=== PATIENT | female | born 1995 | race Two or more races ===

== ENCOUNTER 2019-02-20 13:14 | Emergency (ER) | payer BC ==
[~2019-02-20] VITALS: Ht 165.1 cm; Wt 57.2 kg
--- NOTE | 2019-02-20 13:14 | NUR ---
PT BIBMOM FROM DR GRAHAM FOR +DVT TO RIGHT LOWER EXTREMITY, ALSO C/O CHEST PAIN X 1 MONTH; PT AAOX4, PT ON MONITOR, VSS, PENDING MD NICK
[2019-02-20 14:15] LABS: BASOPHILS % (AUTO) 0.6 % (0.0-2.0); EOSINOPHILS % (AUTO) 0.4 % (0.0-6.0); HEMATOCRIT 40 % (33-45); HEMOGLOBIN 13.8 g/dL (11.5-14.8); LYMPHOCYTES % (AUTO) 18.4 % (20.0-44.0); MEAN CORPUSCULAR HGB CONC 35 g/dl (31.0-36.0); MEAN CORPUSCULAR VOLUME 96 fL (82-100); MONOCYTES # (AUTO) 0.3 /CMM (0.1-1.30); MONOCYTES % (AUTO) 6.3 % (2.0-12.0); NEUTROPHILS % (AUTO) 74.3 % (43.0-81.0); PLATELET COUNT (AUTO) 163 /CMM (150-450); WHITE BLOOD COUNT (AUTO) 5.3 K/uL (4.3-11.0)
[2019-02-20 14:22] LABS: CALCIUM, SERUM 9.1 mg/dL (8.5-10.1); CARBON DIOXIDE 23 mmol/L (21-32); CHLORIDE 100 mmol/L (98-107); GLUCOSE 60 mg/dL (74-106); POTASSIUM 3.9 mmol/L (3.5-5.1); SODIUM SERUM 137 mmol/L (136-145); UREA NITROGEN, BLOOD 24 mg/dL (7-18)
[2019-02-20] MEDS ORDERED: ONDANSETRON HCL/PF 4 MG/2 ML VIAL ONE (14:22)
[2019-02-20] MEDS ORDERED: MORPHINE SULFATE INJ 4 MG/ML DISP.SYRIN ONE (14:23)
[2019-02-20 14:29] LABS: ALANINE AMINOTRANSFERASE 22 U/L (12-78); ALBUMIN 4.5 g/dL (3.4-5.0); ALKALINE PHOSPHATASE 61 U/L (46-116); ASPARTATE AMINOTRANSFERASE 28 U/L (15-37); BILIRUBIN,DIRECT 0.3 mg/dL (0.0-0.2); BILIRUBIN,TOTAL 1.4 mg/dL (0.2-1.0); TOTAL PROTEIN, SERUM 7.6 g/dL (6.4-8.2)
[2019-02-20] MEDS ORDERED: IV NS 0.9% 1,000 ML BAG IV ONE (14:30)
[2019-02-20] MEDS ORDERED: MORPHINE SULFATE INJ 2 MG/ML DISP.SYRIN IV ONE (14:30)
[2019-02-20] MEDS ORDERED: ONDANSETRON HCL/PF 4 MG/2 ML VIAL IV ONE (14:30)
[2019-02-20] MEDS ORDERED: IV NS 0.9% 250 ML IV ONE (14:49)
[2019-02-20] MEDS ORDERED: IOHEXOL-350 100 ML VIAL IV ONE (14:49)
[2019-02-20] MEDS ORDERED: CT SWABBABLE VALVE TRANS SET 1 EA INFUS.SET MC ONE (14:49)
[2019-02-20] MEDS ORDERED: diphenhydrAMINE HCL 50 MG/ML VIAL IV ONE (16:00)
[2019-02-20] MEDS ORDERED: diphenhydrAMINE HCL 50 MG/ML VIAL ONE (16:01)
--- NOTE | 2019-02-20 16:35 | NUR ---
CALLED DR ONEILL'S OFFICE AND LEFT A MESSAGE
--- NOTE | 2019-02-20 16:58 | NUR ---
Patient discharged to home in stable condition. Written and verbal after care instructions given. Patient verbalizes understanding of instruction. IV removed. Catheter intact and site benign. Pressure and 4x4 applied to site. No bleeding noted.
[2019-02-20 16:59] VITALS: BP 110/60
== END 2019-02-20 17:01 | disposition home or self-care (01) ==
LOC: ER 13:17
DX: I82.401 Acute embolism and thrombosis of unspecified deep veins of right lower extremity (principal); R07.89 Other chest pain; T50.905A Adverse effect of unspecified drugs, medicaments and biological substances, initial encounter; R79.89 Other specified abnormal findings of blood chemistry; Z85.830 Personal history of malignant neoplasm of bone; Z88.8 Allergy status to other drugs, medicaments and biological substances; Y92.89 Other specified places as the place of occurrence of the external cause
CPT/HCPCS: 36415; 71045; 71275; 80048; 80076; 84484; 85025; 85730; 96374; 93005; 96375; 99284; J1200; J2270; J2405; J7030; J7050; Q9967

== ENCOUNTER 2019-02-25 20:06 | Inpatient (IN) | payer BC ==
[~2019-02-25] VITALS: Ht 165.1 cm; Wt 56.7 kg
--- NOTE | 2019-02-25 20:26 | NUR ---
Pt JOVANNYselneal complaining of chest pressure x 2 months. Pt states her family and consumer sciences teacher left a voicemail stating she needs to go to the emergency room. Pt AXO4. Respirations even and unlabored. Pt put on the cardiac cath lab manager and pulse ox. Pending eval from ER MD.
--- NOTE | 2019-02-25 20:35 | NUR ---
LAZARA CURIEL at bedside.
--- NOTE | 2019-02-25 20:55 | NUR ---
EKG AT BEDSIDE.
[2019-02-25] MEDS ORDERED: CEFTRIAXONE 1GM BAG (ER ONLY) 50 ML IV ONE (20:59)
[2019-02-25] MEDS ORDERED: GENTAMICIN 80 MG in IV D5W 50 ML IV ONE (21:00)
[2019-02-25] MEDS ORDERED: CEFTRIAXONE 1GM BAG (ER ONLY) 1 GM/50 ML PIGGYBACK IV ONE (21:00)
[2019-02-25] MEDS ORDERED: IV NS 0.9% 1,000 ML BAG IV ONE (21:00)
[2019-02-25 21:05] LABS: BASOPHILS # (AUTO) 0.1 /CMM (0.0-0.2); BASOPHILS % (AUTO) 1.4 % (0.0-2.0); EOSINOPHILS % (AUTO) 1.1 % (0.0-6.0); HEMATOCRIT 40 % (33-45); HEMOGLOBIN 13.7 g/dL (11.5-14.8); LYMPHOCYTES # (AUTO) 1.2 /CMM (0.8-4.8); LYMPHOCYTES % (AUTO) 23.6 % (20.0-44.0); MEAN CORPUSCULAR HGB CONC 34 g/dl (31.0-36.0); MEAN CORPUSCULAR VOLUME 96 fL (82-100); MONOCYTES # (AUTO) 0.5 /CMM (0.1-1.30); MONOCYTES % (AUTO) 9.6 % (2.0-12.0); NEUTROPHILS # (AUTO) 3.2 /CMM (1.8-8.9); NEUTROPHILS % (AUTO) 64.3 % (43.0-81.0); PLATELET COUNT (AUTO) 168 /CMM (150-450)
[2019-02-25 21:14] LABS: CALCIUM, SERUM 9.5 mg/dL (8.5-10.1); CARBON DIOXIDE 28 mmol/L (21-32); CHLORIDE 104 mmol/L (98-107); CREATININE 0.9 mg/dL (0.6-1.3); GLUCOSE 100 mg/dL (74-106); POTASSIUM 3.9 mmol/L (3.5-5.1); SODIUM SERUM 143 mmol/L (136-145); UREA NITROGEN, BLOOD 16 mg/dL (7-18)
[2019-02-25 21:20] LABS: ALANINE AMINOTRANSFERASE 28 U/L (12-78); ALBUMIN 4.1 g/dL (3.4-5.0); ALKALINE PHOSPHATASE 73 U/L (46-116); ASPARTATE AMINOTRANSFERASE 24 U/L (15-37); BILIRUBIN,DIRECT 0.1 mg/dL (0.0-0.2); BILIRUBIN,TOTAL 0.3 mg/dL (0.2-1.0); TOTAL PROTEIN, SERUM 7.2 g/dL (6.4-8.2)
--- NOTE | 2019-02-25 21:24 | NUR ---
XRAY AT BEDSIDE.
--- NOTE | 2019-02-25 21:30 | NUR ---
PT AMBULATED W/ STEADY GAIT TO BATHROOM. URINE SAMPLE SENT TO LAB.
--- NOTE | 2019-02-25 21:35 | NUR ---
GENTAMICIN DOSAGE DONE BY PHARMACY. DOUBLE ORDER. 80 MG GIVEN VIA IVPB.
--- NOTE | 2019-02-25 21:57 | NUR ---
REPORT GIVEN TO JULIAN DUKES FOR ELVIN.
[2019-02-25 23:02] LABS: APPEARANCE,URINE Clear (CLEAR); BILIRUBIN,URINE Negative (NEGATIVE); BLOOD, URINE Negative Ery/uL (NEGATIVE); COLOR,URINE Yellow (YELLOW); KETONES,URINE Negative (NEGATIVE); LEUKOCYTE ESTERASE ,URINE Negative (NEGATIVE); NITRITE, URINE Negative (NEGATIVE); PROTEIN,URINE Negative (NEGATIVE); UGLUCOSE Negative (NEGATIVE); UROBILINOGEN,URINE 0.2 EU/dL (0.2)
[2019-02-25 23:15] VITALS: BP 116/95
--- NOTE | 2019-02-25 23:15 | NUR ---
PRODUCTION CONSULTANTTELEVISION NEWS PHOTOGRAPHER NOTES RECEIVED FROM ER THIS 23 Y.O. FEMALE PER IZABELLA,A/O X4,SENT TO ER BY DR ONEILL FOR ABNORMAL ECHOCARDIOGRAM,C/O GENERALIZED BURNING CHEST PAIN X 2MOS WITH SOB,BEING TREATED FOR DVT ON RIGHT LEG,ON ELIQUIS 10MG BID.DENIES CHEST PAIN UPON ARRIVAL ON THE UNIT.ABLE TO WALK WITH STEADY GAIT.SALINE LOCK LEFT AC INTACT AND PATENT.WITH HX OSTEOSARCOMA ON RIGHT LEG,WITH SURGERY WHEN SHE WAS 15 YRS OLD.INSTRUCTED NPO POST MIDNIGHT GOING FOR TRANSESOPHAGEAL ECHOCARDIOGRAM BY DR HERNÁNDEZ.CALL LIGHT IN REACH,NEEDS ANTICIPATED.
[2019-02-25] MEDS ORDERED: APIX5TAB PO (23:29)
[2019-02-25 23:30] VITALS: BP 116/95
[2019-02-26] VITALS (37 sets, daily range): BP systolic 74–116; BP diastolic 39–76
[2019-02-26] MEDS ORDERED: ONDANSETRON HCL/PF 4 MG/2 ML VIAL IVP PRN
[2019-02-26] MEDS ORDERED: HYDROCODONE/APAP 5/325MG 1 EACH TABLET PO PRN
[2019-02-26] MEDS ORDERED: ACETAMINOPHEN 325 MG TABLET PO PRN
--- NOTE | 2019-02-26 | NUR ---
HOME COMFORT ADVISOR NOTES SEEN AND EXAMINED BY DR BENDER,WITH ORDERS NOTED AND CARRIED OUT.
--- NOTE | 2019-02-26 00:30 | NUR ---
BEEF CATTLE GRAZIER NOTES REFUSED SALINE LOCK THIS TIME.REMOVED PER PATIENT REQUEST.SHE WANT NEW SALINE LOCK TO INSERTED BEFORE SHE GOES TO THE PROCEDURE,ON DIFFERENT SITE.DR BENDER,CHARGE NURSE MARCOS ALAS
--- NOTE | 2019-02-26 06:21 | NUR ---
MS RN NOTES NPO ORDERED.OFFERED TO SIGN CONSENT,SAYS SHE'LL DO IT LATER ALONG WITH THE SALINE LOCK INSERTION.FEMALE RELATIVE AT BEDSIDE. BLOOD PRESSURE CHECKED MANUALLY AND IT WAS 100/64.C/O HEADACHE,NPO STATUS,OFFERED ICE CAP BUT REFUSED.IN NO ACUTE DISTRESS.WILL ENDORSE TO DAY NURSE FOR ELVIN.
[2019-02-26 07:04] LABS: BASOPHILS % (AUTO) 0.6 % (0.0-2.0); HEMATOCRIT 38 % (33-45); HEMOGLOBIN 13.1 g/dL (11.5-14.8); LYMPHOCYTES # (AUTO) 1.5 /CMM (0.8-4.8); LYMPHOCYTES % (AUTO) 29.8 % (20.0-44.0); MEAN CORPUSCULAR HGB CONC 35 g/dl (31.0-36.0); MEAN CORPUSCULAR VOLUME 95 fL (82-100); MONOCYTES # (AUTO) 0.4 /CMM (0.1-1.30); MONOCYTES % (AUTO) 8.3 % (2.0-12.0); NEUTROPHILS % (AUTO) 60.3 % (43.0-81.0); PLATELET COUNT (AUTO) 145 /CMM (150-450); RED BLOOD CELL COUNT(AUTO) 4.01 MIL/uL (4.0-5.2); WHITE BLOOD COUNT (AUTO) 4.9 K/uL (4.3-11.0)
[2019-02-26 07:06] LABS: ALANINE AMINOTRANSFERASE 28 U/L (12-78); ALBUMIN 3.7 g/dL (3.4-5.0); ALKALINE PHOSPHATASE 55 U/L (46-116); ASPARTATE AMINOTRANSFERASE 23 U/L (15-37); BILIRUBIN,TOTAL 0.4 mg/dL (0.2-1.0); CARBON DIOXIDE 27 mmol/L (21-32); CHLORIDE 106 mmol/L (98-107); CREATININE 0.8 mg/dL (0.6-1.3); GLUCOSE 103 mg/dL (74-106); PHOSPHORUS 3.7 mg/dL (2.5-4.9); POTASSIUM 3.8 mmol/L (3.5-5.1); SODIUM SERUM 142 mmol/L (136-145); TOTAL PROTEIN, SERUM 6.6 g/dL (6.4-8.2); UREA NITROGEN, BLOOD 12 mg/dL (7-18)
[2019-02-26] MEDS: PANTOPRAZOLE 40 MG TABLET.DR PO SCH (07:30)
[2019-02-26] MEDS: ACIDOPHILUS/BULGARICUS 1 EACH TAB.CHEW PO SCH ×2 (09:00→17:13)
[2019-02-26] MEDS: APIXABAN 5 MG TABLET PO SCH ×2 (09:00→17:13)
--- NOTE | 2019-02-26 09:31 | NUR ---
TELE/RN NOTE PROTONIX, ELIQUIS AND LACTINEX NOT ADMINISTERED DUE TO DIAGNOSTIC PROCEDURE. DR HERNÁNDEZ IS MADE AWARE.
--- NOTE | 2019-02-26 12:00 | NUR ---
ICU/RN: Dr Ibarra, Dr Prasad and service desk technician at bedside for KWABENA. Timeout performed. Pt verbalized understanding of procedure.
[2019-02-26] MEDS ORDERED: PROPOFOL 10MG/ML 50ML 50 ML IV ONE (12:30)
[2019-02-26] MEDS ORDERED: PROPOFOL 100 ML IV ONE (13:00)
--- NOTE | 2019-02-26 13:15 | NUR ---
ICU/RN: S/P KWABENA; pt tolerated procedure, no distress noted. Family at bedside, supportive.
[2019-02-26] MEDS ORDERED: CT SWABBABLE VALVE TRANS SET 1 EA INFUS.SET MC ONE (13:55)
[2019-02-26] MEDS ORDERED: IOHEXOL-350 100 ML VIAL IV ONE (13:55)
[2019-02-26] MEDS ORDERED: IV NS 0.9% 250 ML IV ONE ×2 (13:55→20:30)
--- NOTE | 2019-02-26 14:15 | NUR ---
ICU/RN: Pt back from CT; tolerated procedure well. Dr Ibarra notified, results pending. Per . Keep pt in ICU.
--- NOTE | 2019-02-26 15:30 | NUR ---
ICU/RN: Results of CTA chest relayed to Dr Ibarra; MD requested radiologist contact info for MD to MD discussion. Provided. Per Dr Ibarra, get stat head CT without contrast; ok to continue Eliquis if scan negative. Discussed with pt and family, verbalized understanding. deep submergence vehicle operator updated.
[2019-02-26] MEDS: MENTHOL/CETYLPYRD (CEPACOL) 1 LOZ LOZENGE PO PRN ×4 (17:12→23:14)
--- NOTE | 2019-02-26 19:35 | NUR ---
ICU/RN: Pt s/b Dr Ibarra, lengthy dw pt regarding KWABENA findings and POC. Educated by MD on need to keep IV access while in hospital. Per MD, "she's good to go back to tele unit." Endorsed to PM RN for ELVIN.
--- NOTE | 2019-02-26 20:00 | NUR ---
Received patient A/OX4.ROGEL.Respiration even and unlabored.SPO2 99% on RA.SR.Normotensive. Denies pain or any discomfort.Seen by MD with orders.Plan of care explained to patient verbalized understanding.Call light at bedside within easy reach.
[2019-02-26] MEDS ORDERED: CEFTRIAXONE 2 G in IV D5W 100 ML IV SCH (21:00)
[2019-02-26] MEDS: LINEZOLID RTU BAG 600 MG in PREMIX 1 EA IV SCH (21:15)
--- NOTE | 2019-02-26 23:15 | NUR ---
Patient complaints of sore throat.Cepacol throat lozenges administered as prn. Verbalized relief.
[2019-02-27] VITALS (21 sets, daily range): BP systolic 71–116; BP diastolic 43–72
--- NOTE | 2019-02-27 | NUR ---
Patient ambulated to restroom.Well tolerated.VS remains stable.Denies pain or sob.Friend visiting.
--- NOTE | 2019-02-27 04:00 | NUR ---
Sleeping on rounds.SB 53 and SBP 85.Patient on side lying position.Will monitor for changes. NO signs of pain or any distress.
[2019-02-27 04:46] LABS: BASOPHILS % (AUTO) 0.7 % (0.0-2.0); EOSINOPHILS % (AUTO) 1.3 % (0.0-6.0); HEMATOCRIT 38 % (33-45); HEMOGLOBIN 13.2 g/dL (11.5-14.8); LYMPHOCYTES # (AUTO) 1.4 /CMM (0.8-4.8); LYMPHOCYTES % (AUTO) 28.4 % (20.0-44.0); MEAN CORPUSCULAR HGB CONC 35 g/dl (31.0-36.0); MEAN CORPUSCULAR VOLUME 95 fL (82-100); MONOCYTES # (AUTO) 0.4 /CMM (0.1-1.30); MONOCYTES % (AUTO) 8.8 % (2.0-12.0); NEUTROPHILS % (AUTO) 60.8 % (43.0-81.0); PLATELET COUNT (AUTO) 145 /CMM (150-450); RED BLOOD CELL COUNT(AUTO) 3.96 MIL/uL (4.0-5.2)
[2019-02-27 04:55] LABS: CALCIUM, SERUM 8.6 mg/dL (8.5-10.1); CREATININE 0.9 mg/dL (0.6-1.3)
--- NOTE | 2019-02-27 06:30 | NUR ---
Patient slept rest of the night.VS remains stable.Remains on RA SPO2 98%.-99%.Patient for transfer to Tele floor pending bed availability.Learning Support Services Director aware.Will endorse to day shift RN for continuity of care.
[2019-02-27] MEDS: PANTOPRAZOLE 40 MG TABLET.DR PO SCH (07:31)
--- NOTE | 2019-02-27 08:00 | NUR ---
ICU/RN: Pt received, no distress, A&Ox4, independent of ADLs. Educated on POC.
[2019-02-27] MEDS: APIXABAN 5 MG TABLET PO SCH ×2 (08:03→16:56)
[2019-02-27] MEDS: ACIDOPHILUS/BULGARICUS 1 EACH TAB.CHEW PO SCH ×2 (08:03→16:56)
[2019-02-27] MEDS: LINEZOLID RTU BAG 600 MG in PREMIX 1 EA IV SCH (08:04)
[2019-02-27] MEDS: MENTHOL/CETYLPYRD (CEPACOL) 1 LOZ LOZENGE PO PRN (11:54)
--- NOTE | 2019-02-27 18:00 | NUR ---
ICU/RN: Pt cleared for DC by ID; cx negative, no abx tx indicated. Educated pt on s/s infection, when to see MD. Verbalized understanding.
--- NOTE | 2019-02-27 18:30 | NUR ---
ICU/RN: Pt seen by EDUARDO Smith regarding. Per CRISIS THERAPIST, ok to dc pt home. Pt verbalized understanding of DC instructions.
--- NOTE | 2019-02-27 18:52 | NUR ---
ICU/RN: Discharge Pt discharged in stable condition, accompanied by father. IV HL d/c'd, pressure applied. Educated extensively on dc instructions, contact info for Dr Ibarra and Dr Cali for pt. Pt verbalized understanding. Copies of chart provided. All belongings accounted for. Pt ambulated with steady gait.
[2019-03-05] MEDS ORDERED: APIXABAN 5 MG TABLET PO SCH (09:00)
== END 2019-02-27 18:54 | disposition home or self-care (01) | DRG 202 ==
LOC: ER 20:08 → TELE 22:35 → ICU 02-26 14:38
PROVIDERS: ADMIT Internal Medicine; ATTEND Nurse Practitioner Acute Care
DX: J20.9 Acute bronchitis, unspecified (principal); I82.401 Acute embolism and thrombosis of unspecified deep veins of right lower extremity; Z85.830 Personal history of malignant neoplasm of bone; Z85.118 Personal history of other malignant neoplasm of bronchus and lung; Z92.21 Personal history of antineoplastic chemotherapy; Z88.1 Allergy status to other antibiotic agents; Z79.01 Long term (current) use of anticoagulants
CPT/HCPCS: 36415; 70450-TC; 71045-TC; 80048-TC; 80053-TC; 80076-TC; 81000-TC; 83605-TC; 83735-TC; 83880; 84100-TC; 84484-TC; 84702-TC; 85025-TC; 85730-TC; 87040-TC; 87081-TC; 87086-TC; 93312-TC; A4216; G0378; J0696; J1580; J2020; J2704; J3490; J7030; J7050; J7060; Q9967

== ENCOUNTER 2020-01-02 11:14 | Emergency (ER) | payer BC ==
[~2020-01-02] VITALS: Ht 170.2 cm; Wt 56.7 kg
[~2020-01-02 11:14] MED LIST: APIX5TAB PO
--- NOTE | 2020-01-02 11:32 | NUR ---
AT BEDSIDE FOR EVAL.
--- NOTE | 2020-01-02 11:46 | NUR ---
MECHANIC INDUSTRIAL TRUCK AT BEDSIDE FOR XRAY.
[2020-01-02 12:16] VITALS: BP 115/67
--- NOTE | 2020-01-02 12:18 | NUR ---
Patient discharged to home in stable condition. Written and verbal after care instructions given. Patient verbalizes understanding of instruction.
[2020-01-02] MEDS ORDERED: IBUPROFEN 600 MG TABLET PO ONE ×2 (12:22→12:30)
== END 2020-01-02 12:18 | disposition home or self-care (01) ==
LOC: ER 11:14
DX: M25.561 Pain in right knee (principal); Z88.5 Allergy status to narcotic agent; Z88.1 Allergy status to other antibiotic agents; Z79.899 Other long term (current) drug therapy; Z88.8 Allergy status to other drugs, medicaments and biological substances; Z88.9 Allergy status to unspecified drugs, medicaments and biological substances
CPT/HCPCS: 73560-TC

== ENCOUNTER 2020-02-02 12:15 | Outpatient (CLI) | payer BC | END 2020-02-02 23:59 | disposition home or self-care (01) | LOC: CARD 12:15 | PROVIDERS: ATTEND Family Medicine | DX: M79.604 Pain in right leg (principal) | CPT/HCPCS: 93971-TC ==

== ENCOUNTER 2020-02-04 14:35 | Outpatient (CLI) | payer BC | END 2020-02-04 23:59 | disposition home or self-care (01) | LOC: CT 14:35 | PROVIDERS: ATTEND Family Medicine | DX: M79.89 Other specified soft tissue disorders (principal); Z96.651 Presence of right artificial knee joint | CPT/HCPCS: 73700-TC ==

== ENCOUNTER 2020-02-09 14:19 | Outpatient (CLI) | payer BC ==
[2020-02-09] MEDS ORDERED: IV NS 0.9% 250 ML IV ONE (15:57)
[2020-02-09] MEDS ORDERED: CT SWABBABLE VALVE TRANS SET 1 EA INFUS.SET MC ONE (15:57)
[2020-02-09] MEDS ORDERED: IOHEXOL-300 100 ML VIAL IV ONE (15:57)
== END 2020-02-09 23:59 | disposition home or self-care (01) ==
LOC: CARD 14:19
PROVIDERS: ATTEND Family Medicine
DX: R22.41 Localized swelling, mass and lump, right lower limb (principal); Z96.651 Presence of right artificial knee joint
CPT/HCPCS: 73701; 76881; J7050; Q9967

== ENCOUNTER 2020-02-25 10:27 | Emergency (ER) | payer BC ==
[~2020-02-25] VITALS: Ht 162.6 cm; Wt 54.4 kg
[2020-02-25 10:36] VITALS: BP 134/77
--- NOTE | 2020-02-25 11:18 | NUR ---
Jyoti dey in [facility] - 02/25/[address] ONEAL AT [facility] FOR
--- NOTE | 2020-02-25 12:51 | NUR ---
uction DC home instructdelta del valle agrees to call pmd in 2 days verbalized understnding
== END 2020-02-25 12:54 | disposition home or self-care (01) ==
LOC: ER 10:31
DX: S80.01XA Contusion of right knee, initial encounter (principal); Z88.8 Allergy status to other drugs, medicaments and biological substances; Z79.899 Other long term (current) drug therapy; X58.XXXA Exposure to other specified factors, initial encounter; Y93.89 Activity, other specified; Y92.89 Other specified places as the place of occurrence of the external cause; Y99.8 Other external cause status; Z88.6 Allergy status to analgesic agent

== ENCOUNTER 2020-03-10 18:50 | Emergency (ER) | payer BC ==
[~2020-03-10] VITALS: Ht 167.6 cm; Wt 52.2 kg
--- NOTE | 2020-03-10 19:30 | NUR ---
BIBS. TO ER BED 1. AAOX4. NOT IN RESP DISTRESS. AMBULATORY. C/O R KNEE PAIN AND SWELLING FOR THE PAST MONTH. PT RATES HER PAIN 6/10. NOTED R KNEE SWELLING, NO REDNESS. ROM INTACT. PAST HAS AN OLD SCAR WHICH WAS OBTAINED FROM OSTEOSARCOMA. WAS AT BEDSIDE FOR EVAL. AWAITING ULTRASOUND
--- NOTE | 2020-03-10 21:23 | NUR ---
Patient discharged to home in stable condition. Written and verbal after care instructions given. Patient verbalizes understanding of instruction. Pt ambulatory with a steady gait
[2020-03-10 21:26] VITALS: BP 112/71
== END 2020-03-10 21:26 | disposition home or self-care (01) ==
LOC: ER 18:50
DX: R22.41 Localized swelling, mass and lump, right lower limb (principal); Z85.830 Personal history of malignant neoplasm of bone; Z88.6 Allergy status to analgesic agent; Z88.8 Allergy status to other drugs, medicaments and biological substances; Z88.1 Allergy status to other antibiotic agents; Z79.899 Other long term (current) drug therapy
CPT/HCPCS: 76882